=== PATIENT | female | born 1970 | race Caucasian/White ===

== ENCOUNTER 2020-08-30 18:09 | Observation (INO) ==
[2020-08-30] MEDS ORDERED: DEXTROSE 50% 25 GM/50 ML VIAL IV PRN (19:09)
[2020-08-30] MEDS ORDERED: GLUCAGON 1 MG VIAL IM PRN (19:09)
[2020-08-30 19:39] LABS: Basophils % 0.2 % (0.0-0.8); Eosinophils # 0.1 10*3/uL (0.0-0.87); Eosinophils % 0.9 % (0.00-10.9); Hematocrit 42.7 VOL% (35.7-47.0); Hemoglobin 14.6 GM/DL (12.0-16.0); Immature Granulocytes % 0.2 %; Immature Granulocytes Absolute 0.02 #; Lymphocytes # 2.1 10*3/uL (1.4-4.0); Lymphocytes % 24.5 % (21.3-54.2); Mean Corpuscular HGB Conc 34.2 GM/DL (32-36); Mean Corpuscular Volume 87.1 FL (87-102); Mean Platelet Volume 9.9 FL (9.6-12.0); Neutrophils % 70.2 % (38.7-73.9); Platelet Count 223 T/CUMM (130-400); Red Cell Distribution Width 13.2 % (9.3-17.3); White Blood Count 8.5 T/CUMM (4-12)
[2020-08-30 20:07] LABS: Albumin 3.8 G/DL (3.4-5.0); Bilirubin,Total 1.1 MG/DL (0.2-1.0); Calcium 8.9 MG/DL (8.5-10.1); Osmolality,Calculated 272.8 MOS/KG (273-304); Risk Ratio 8.04; Thyroid Stimulating Hormone 1.53 uIU/ml (0.358-3.74); Total Protein 7.5 G/DL (6.4-8.3); VLDL CHOLESTEROL 28.2 MG/DL
[2020-08-30] MEDS ORDERED: ENOXAPARIN 40 MG/0.4 ML SYRINGE SUBCUT SCH (21:00)
[2020-08-31] MEDS ORDERED: NITROGLYCERIN SL 0.4 MG TABLET SL PRN (00:49)
[2020-08-31] MEDS ORDERED: MORPHINE 4 MG/1 ML VIAL IV PRN (00:50)
[2020-08-31 01:04] LABS: Basophils % 0.4 % (0.0-0.8); Eosinophils # 0.1 10*3/uL (0.0-0.87); Eosinophils % 1.3 % (0.00-10.9); Hematocrit 41.8 VOL% (35.7-47.0); Hemoglobin 14.2 GM/DL (12.0-16.0); Immature Granulocytes % 0.3 %; Immature Granulocytes Absolute 0.03 #; Lymphocytes # 3.2 10*3/uL (1.4-4.0); Lymphocytes % 31.7 % (21.3-54.2); Mean Corpuscular Volume 86.4 FL (87-102); Mean Platelet Volume 9.6 FL (9.6-12.0); Monocytes % 5.2 % (1.7-12.7); Neutrophils % 61.1 % (38.7-73.9); Platelet Count 207 T/CUMM (130-400); Red Blood Count 4.84 MC/CUMM (3.8-5.5); Red Cell Distribution Width 13.5 % (9.3-17.3); White Blood Count 10.1 T/CUMM (4-12)
[2020-08-31] MEDS: ONDANSETRON 4 MG/2 ML VIAL IV PRN (01:13)
[2020-08-31 01:24] LABS: Calcium 8.7 MG/DL (8.5-10.1); Osmolality,Calculated 277.5 MOS/KG (273-304)
[2020-08-31] MEDS ORDERED: carvediloL 6.25 MG TABLET PO SCH (09:00)
[2020-08-31] MEDS ORDERED: ASPIRIN CHEW 81 MG TABLET PO ONE (09:35)
[2020-08-31] MEDS ORDERED: ENOXAPARIN 100 MG/ML SYRINGE SUBCUT ONE (09:36)
[2020-08-31] MEDS ORDERED: carvediloL 6.25 MG TABLET PO ONE (09:39)
[2020-08-31] MEDS ORDERED: POTASSIUM CHLORIDE RIDER 10 MEQ in PREMIX 1 EACH IV PRN (09:44)
[2020-08-31] MEDS ORDERED: DIAZEPAM 5 MG TABLET PO ONE (09:44)
[2020-08-31] MEDS ORDERED: diphenhydrAMINE CAP 25 MG CAPSULE PO ONE (09:44)
[2020-08-31] MEDS ORDERED: MAGNESIUM SULF RIDER 2 GM in PREMIX 1 EACH IV PRN (09:44)
[2020-08-31] MEDS ORDERED: SODIUM CHLORIDE 0.9% 1,000 ML IV SCH (09:45)
[2020-08-31] MEDS ORDERED: PANTOPRAZOLE 40 MG TABLET PO SCH (10:00)
[2020-08-31] MEDS ORDERED: HYOSCYAMINE 0.125 MG TABLET PO PRN (10:02)
[2020-08-31] MEDS ORDERED: DEXTROSE 50% 25 GM/50 ML VIAL IV PRN (10:04)
[2020-08-31] MEDS ORDERED: SODIUM CHLORIDE 0.45% 1,000 ML IV SCH (10:30)
[2020-08-31] MEDS: ASPIRIN CHEW 81 MG TABLET PO SCH (10:33)
[2020-08-31] MEDS: SERTRALINE 25 MG TABLET PO SCH (10:49)
[2020-08-31] MEDS: clonazePAM 0.5 MG TABLET PO SCH ×2 (10:50→21:28)
[2020-08-31] MEDS: ROSUVASTATIN 10 MG TABLET PO SCH (10:51)
[2020-08-31] MEDS: GABAPENTIN 100 MG CAPSULE PO SCH ×3 (10:51→21:27)
[2020-08-31] MEDS: INSULIN REGULAR 100 UNIT/ML SUBCUT SCH ×3 (11:45→21:27)
[2020-08-31] MEDS ORDERED: PANTOPRAZOLE 40 MG TABLET PO ONE (12:37)
[2020-08-31] MEDS ORDERED: ACETAMINOPHEN 325 MG TABLET PO PRN (12:38)
[2020-08-31] MEDS ORDERED: traMADol 50 MG TABLET PO PRN (12:39)
[2020-08-31] MEDS: carvediloL 25 MG TABLET PO SCH (21:27)
[2020-08-31] MEDS: PANTOPRAZOLE 40 MG TABLET PO SCH (21:28)
[2020-08-31] MEDS: ENOXAPARIN 100 MG/ML SYRINGE SUBCUT SCH (21:28)
[2020-09-01 05:55] LABS: Basophils % 0.3 % (0.0-0.8); Eosinophils # 0.1 10*3/uL (0.0-0.87); Eosinophils % 1.6 % (0.00-10.9); Hematocrit 38.4 VOL% (35.7-47.0); Hemoglobin 12.8 GM/DL (12.0-16.0); Immature Granulocytes % 0.3 %; Immature Granulocytes Absolute 0.02 #; Lymphocytes # 2.6 10*3/uL (1.4-4.0); Lymphocytes % 38.4 % (21.3-54.2); Mean Corpuscular HGB Conc 33.3 GM/DL (32-36); Mean Corpuscular Volume 89.5 FL (87-102); Mean Platelet Volume 10.1 FL (9.6-12.0); Neutrophils % 53.4 % (38.7-73.9); Platelet Count 179 T/CUMM (130-400); Red Blood Count 4.29 MC/CUMM (3.8-5.5); Red Cell Distribution Width 13.5 % (9.3-17.3); White Blood Count 6.8 T/CUMM (4-12)
[2020-09-01 06:15] LABS: Calcium 8.4 MG/DL (8.5-10.1); Osmolality,Calculated 277.7 MOS/KG (273-304)
[2020-09-01] MEDS: INSULIN REGULAR 100 UNIT/ML SUBCUT SCH ×4 (08:44→21:43)
[2020-09-01] MEDS: carvediloL 25 MG TABLET PO SCH ×2 (09:04→21:43)
[2020-09-01] MEDS: amLODIPine 5 MG TABLET PO SCH (09:04)
[2020-09-01] MEDS: ASPIRIN CHEW 81 MG TABLET PO SCH (09:04)
[2020-09-01] MEDS: GABAPENTIN 100 MG CAPSULE PO SCH ×3 (09:04→21:43)
[2020-09-01] MEDS: clonazePAM 0.5 MG TABLET PO SCH (09:05)
[2020-09-01] MEDS: PANTOPRAZOLE 40 MG TABLET PO SCH ×2 (09:05→21:44)
[2020-09-01] MEDS: ROSUVASTATIN 10 MG TABLET PO SCH (09:05)
[2020-09-01] MEDS: SERTRALINE 25 MG TABLET PO SCH (09:05)
[2020-09-01] MEDS: ENOXAPARIN 100 MG/ML SYRINGE SUBCUT SCH ×2 (09:07→21:43)
[2020-09-01] MEDS ORDERED: MAGNESIUM SULF RIDER 2 GM in PREMIX 1 EACH IV PRN (09:41)
[2020-09-01] MEDS ORDERED: POTASSIUM CHLORIDE RIDER 10 MEQ in PREMIX 1 EACH IV PRN (09:41)
[2020-09-01] MEDS ORDERED: ESTROGENS (CONJ) VAG CREAM 30 GM TUBE VAG SCH (21:00)
[2020-09-02] MEDS ORDERED: SODIUM CHLORIDE 0.9% 1,000 ML IV SCH ×2 (07:00→11:30)
[2020-09-02] MEDS: ASPIRIN CHEW 81 MG TABLET PO SCH (09:13)
[2020-09-02] MEDS: carvediloL 25 MG TABLET PO SCH ×2 (09:13→21:12)
[2020-09-02] MEDS: amLODIPine 5 MG TABLET PO SCH (09:13)
[2020-09-02] MEDS: PANTOPRAZOLE 40 MG TABLET PO SCH ×2 (09:13→21:12)
[2020-09-02] MEDS: GABAPENTIN 100 MG CAPSULE PO SCH ×3 (09:13→21:12)
[2020-09-02] MEDS: SERTRALINE 25 MG TABLET PO SCH (09:13)
[2020-09-02] MEDS: ROSUVASTATIN 10 MG TABLET PO SCH (09:13)
[2020-09-02] MEDS: ENOXAPARIN 100 MG/ML SYRINGE SUBCUT SCH ×2 (09:16→21:09)
[2020-09-02] MEDS: INSULIN REGULAR 100 UNIT/ML SUBCUT SCH ×4 (09:58→21:13)
[2020-09-02] MEDS ORDERED: NITROGLYCERIN DRIP 50 MG/250 ML BOTTLE IV ONE (10:04)
[2020-09-02] MEDS ORDERED: LIDOCAINE 1% 20 ML VIAL ONE (10:04)
[2020-09-02] MEDS ORDERED: HEPARIN/NACL 0.9% 2 UNITS/ML 1,000 ML IV ONE (10:04)
[2020-09-02] MEDS ORDERED: VERAPAMIL 5 MG/2 ML VIAL ONE ×2 (10:05→10:46)
[2020-09-02] MEDS ORDERED: DIAZEPAM 5 MG TABLET PO ONE (10:16)
[2020-09-02] MEDS ORDERED: diphenhydrAMINE CAP 25 MG CAPSULE PO ONE (10:16)
[2020-09-02] MEDS ORDERED: HYDROmorphone 2 MG/1 ML VIAL ONE (10:30)
[2020-09-02] MEDS ORDERED: MIDAZOLAM 2 MG/2 ML VIAL ONE (10:30)
[2020-09-02 10:40] LABS: Basophils % 0.5 % (0.0-0.8); Eosinophils # 0.1 10*3/uL (0.0-0.87); Eosinophils % 1.2 % (0.00-10.9); Hematocrit 39.4 VOL% (35.7-47.0); Hemoglobin 13.6 GM/DL (12.0-16.0); Immature Granulocytes % 0.3 %; Immature Granulocytes Absolute 0.02 #; Lymphocytes # 1.7 10*3/uL (1.4-4.0); Lymphocytes % 28.5 % (21.3-54.2); Mean Corpuscular HGB Conc 34.5 GM/DL (32-36); Mean Corpuscular Volume 87.2 FL (87-102); Mean Platelet Volume 9.7 FL (9.6-12.0); Monocytes % 5.3 % (1.7-12.7); Neutrophils % 64.2 % (38.7-73.9); Platelet Count 198 T/CUMM (130-400); Red Blood Count 4.52 MC/CUMM (3.8-5.5); Red Cell Distribution Width 13.2 % (9.3-17.3); White Blood Count 5.9 T/CUMM (4-12)
[2020-09-02] MEDS ORDERED: TIROFIBAN 5,000 MCG/100 ML PREMIX IV ONE (11:00)
[2020-09-02 11:04] LABS: Calcium 8.7 MG/DL (8.5-10.1); Osmolality,Calculated 280.4 MOS/KG (273-304)
[2020-09-02] MEDS ORDERED: TICAGRELOR 90 MG TABLET ONE (11:20)
[2020-09-02] MEDS: ONDANSETRON 4 MG/2 ML VIAL IV PRN (13:24)
[2020-09-02 20:13] LABS: Bilirubin,Urine Negative (Negative); Blood, Urine Large mg/dL (Negative); Glucose,Urine (UA) 50 mg/dL (Negative); Ketones,Urine Negative (Negative); Mucus,Urine Occasional /LPF (Occasional); Nitrite,Urine Negative (Negative); Protein,Urine Negative; RBC,Urine 904 /HPF (0-4); Urine Appearance CLEAR (Clear); Urine Color Yellow (Yellow); Urine Specific Gravity 1.012 (1.001-1.035); Urine Urobilinogen < 2.0 EU/DL (0.2-1.0)
[2020-09-02] MEDS: TICAGRELOR 90 MG TABLET PO SCH (21:12)
[2020-09-03 03:45] LABS: Basophils % 0.3 % (0.0-0.8); Eosinophils # 0.1 10*3/uL (0.0-0.87); Eosinophils % 1.4 % (0.00-10.9); Hematocrit 34.7 VOL% (35.7-47.0); Hemoglobin 11.8 GM/DL (12.0-16.0); Immature Granulocytes % 0.1 %; Immature Granulocytes Absolute 0.01 #; Lymphocytes # 1.8 10*3/uL (1.4-4.0); Lymphocytes % 25.1 % (21.3-54.2); Mean Corpuscular Volume 88.5 FL (87-102); Mean Platelet Volume 10.2 FL (9.6-12.0); Monocytes % 5.5 % (1.7-12.7); Neutrophils % 67.6 % (38.7-73.9); Platelet Count 167 T/CUMM (130-400); Red Blood Count 3.92 MC/CUMM (3.8-5.5); Red Cell Distribution Width 13.2 % (9.3-17.3); White Blood Count 7.2 T/CUMM (4-12)
[2020-09-03 04:07] LABS: Albumin 3.2 G/DL (3.4-5.0); Bilirubin,Total 0.6 MG/DL (0.2-1.0); Calcium 8.1 MG/DL (8.5-10.1); Total Protein 6.3 G/DL (6.4-8.3)
[2020-09-03 04:08] LABS: Blood Urea Nitrogen 10 MG/DL (7-18); Calcium 8.5 MG/DL (8.5-10.1); Estimated Glom Filtration Rate 118 ML/MIN; Glucose 128 MG/DL (74-106); Troponin I 0.085 NG/ML (0.00-0.045)
[2020-09-03] MEDS: TICAGRELOR 90 MG TABLET PO SCH (08:43)
[2020-09-03] MEDS: SERTRALINE 25 MG TABLET PO SCH (08:43)
[2020-09-03] MEDS: amLODIPine 5 MG TABLET PO SCH (08:44)
[2020-09-03] MEDS: PANTOPRAZOLE 40 MG TABLET PO SCH (08:44)
[2020-09-03] MEDS: ROSUVASTATIN 10 MG TABLET PO SCH (08:44)
[2020-09-03] MEDS: GABAPENTIN 100 MG CAPSULE PO SCH (08:44)
[2020-09-03] MEDS: carvediloL 25 MG TABLET PO SCH (08:45)
[2020-09-03] MEDS: INSULIN REGULAR 100 UNIT/ML SUBCUT SCH (08:45)
[2020-09-03] MEDS: ENOXAPARIN 100 MG/ML SYRINGE SUBCUT SCH (08:46)
[2020-09-03] MEDS ORDERED: ASPIRIN EC 81 MG TABLET PO SCH (09:00)
[2020-09-03 12:25] VITALS: BP 103/56
== END 2020-09-03 13:24 | disposition home or self-care (01) ==
LOC: INTOOBSV 18:09 → N.TELES 18:09 → SUATTDRO 18:09
PROVIDERS: ADMIT Family Medicine; ATTEND Family Medicine

== ENCOUNTER 2021-03-22 04:24 | Observation (INO) ==
[2021-03-22] MEDS ORDERED: ONDANSETRON 4 MG/2 ML VIAL IV ONE (05:00)
[2021-03-22] MEDS ORDERED: ALUM/MAG/SIMETH/LIDO VISC 1:1 30 ML BOTTLE PO STA (05:00)
[2021-03-22 05:06] LABS: Basophils % 0.2 % (0.0-0.8); Eosinophils # 0.1 10*3/uL (0.0-0.87); Eosinophils % 0.7 % (0.00-10.9); Hematocrit 39.2 VOL% (35.7-47.0); Immature Granulocytes % 0.3 %; Immature Granulocytes Absolute 0.03 #; Lymphocytes # 0.7 10*3/uL (1.4-4.0); Lymphocytes % 8.3 % (21.3-54.2); Mean Corpuscular HGB Conc 33.2 GM/DL (32-36); Mean Corpuscular Volume 88.1 FL (87-102); Mean Platelet Volume 10.5 FL (9.6-12.0); Neutrophils % 85.5 % (38.7-73.9); Platelet Count 168 T/CUMM (130-400); Red Blood Count 4.45 MC/CUMM (3.8-5.5); Red Cell Distribution Width 13.8 % (9.3-17.3)
[2021-03-22 05:27] LABS: Albumin 3.9 G/DL (3.4-5.0); Calcium 8.8 MG/DL (8.5-10.1); Osmolality,Calculated 285.3 MOS/KG (273-304); Total Protein 6.9 G/DL (6.4-8.2)
[2021-03-22] MEDS ORDERED: ONDANSETRON 4 MG/2 ML VIAL IV PRN (05:33)
[2021-03-22] MEDS ORDERED: MORPHINE 2 MG/1 ML SYRINGE IV PRN (05:33)
[2021-03-22] MEDS ORDERED: ACETAMINOPHEN 325 MG TABLET PO PRN (05:33)
[2021-03-22] MEDS: SODIUM CHLORIDE 0.9% 1,000 ML IV SCH ×2 (06:12→14:19)
[2021-03-22 06:16] LABS: PT Patient Result 10.9 SECS (10.5-12.0); Partial Thromboplastin Time 24.1 SECS (23.9-33.8)
[2021-03-22] MEDS ORDERED: ASPIRIN 325 MG TABLET PO SCH (09:00)
[2021-03-22] MEDS: PANTOPRAZOLE 40 MG TABLET PO SCH (10:03)
[2021-03-22] MEDS: PROMETHAZINE 25 MG TABLET PO PRN ×2 (10:03→21:38)
[2021-03-22] MEDS ORDERED: NITROGLYCERIN SL 0.4 MG TABLET SL PRN (10:12)
[2021-03-22] MEDS ORDERED: ASPIRIN EC 81 MG TABLET PO SCH (10:30)
[2021-03-22] MEDS: ISOSORBIDE MONONITRATE 30 MG TABLET PO SCH (11:38)
[2021-03-22] MEDS: CLOPIDOGREL 75 MG TABLET PO SCH (11:38)
[2021-03-22] MEDS ORDERED: DEXTROSE 50% 25 GM/50 ML VIAL IV PRN (17:12)
[2021-03-22] MEDS ORDERED: GLUCAGON 1 MG VIAL IM PRN (17:12)
[2021-03-22] MEDS ORDERED: ROSUVASTATIN 10 MG TABLET PO SCH (21:00)
[2021-03-22] MEDS: INSULIN LISPRO 100 UNIT/ML SUBCUT SCH (21:38)
[2021-03-22] MEDS: carvediloL 25 MG TABLET PO SCH (21:38)
[2021-03-23 04:54] LABS: Basophils % 0.2 % (0.0-0.8); Eosinophils # 0.1 10*3/uL (0.0-0.87); Eosinophils % 1.3 % (0.00-10.9); Hematocrit 34.7 VOL% (35.7-47.0); Hemoglobin 11.4 GM/DL (12.0-16.0); Immature Granulocytes % 0.2 %; Immature Granulocytes Absolute 0.01 #; Lymphocytes # 1.9 10*3/uL (1.4-4.0); Lymphocytes % 30.6 % (21.3-54.2); Mean Corpuscular HGB Conc 32.9 GM/DL (32-36); Mean Corpuscular Volume 89.2 FL (87-102); Mean Platelet Volume 10.3 FL (9.6-12.0); Monocytes % 7.7 % (1.7-12.7); Platelet Count 150 T/CUMM (130-400); Red Blood Count 3.89 MC/CUMM (3.8-5.5); Red Cell Distribution Width 14.3 % (9.3-17.3); White Blood Count 6.1 T/CUMM (4-12)
[2021-03-23] MEDS: SODIUM CHLORIDE 0.9% 1,000 ML IV SCH (05:13)
[2021-03-23 05:20] LABS: Albumin 3.3 G/DL (3.4-5.0); Bilirubin,Total 0.8 MG/DL (0.20-1.00); Calcium 8.3 MG/DL (8.5-10.1); Osmolality,Calculated 282.1 MOS/KG (273-304); Potassium 3.7 MMOL/L (3.5-5.1); Total Protein 6.3 G/DL (6.4-8.2)
[2021-03-23 05:37] LABS: Risk Ratio 4.07; VLDL Cholesterol 30.2 MG/DL
[2021-03-23] MEDS: INSULIN LISPRO 100 UNIT/ML SUBCUT SCH ×2 (07:45→11:40)
[2021-03-23] MEDS ORDERED: ASPIRIN EC 81 MG TABLET PO SCH (09:00)
[2021-03-23] MEDS ORDERED: amLODIPine 5 MG TABLET PO SCH (09:00)
[2021-03-23] MEDS: ISOSORBIDE MONONITRATE 30 MG TABLET PO SCH (09:30)
[2021-03-23] MEDS: PANTOPRAZOLE 40 MG TABLET PO SCH (09:31)
[2021-03-23] MEDS: carvediloL 25 MG TABLET PO SCH (09:31)
[2021-03-23] MEDS: CLOPIDOGREL 75 MG TABLET PO SCH (09:31)
[2021-03-23 11:34] VITALS: BP 119/67
== END 2021-03-23 13:20 | disposition home or self-care (01) ==
LOC: EDBD → EDUNIT# → N.EDINP 04:24 → N.ED 04:24 → N.EDINP 07:29 → N.TELES 07:51
PROVIDERS: ADMIT Family Medicine; ATTEND Family Medicine